=== PATIENT | female | born 1960 | race Caucasian/White ===

== ENCOUNTER → 2017-01-30 | Outpatient (CLI) | payer BC | LOC: LAB 08:10 | DX: E03.9 Hypothyroidism, unspecified (principal); Z13.1 Encounter for screening for diabetes mellitus; Z13.6 Encounter for screening for cardiovascular disorders ==

== ENCOUNTER → 2017-02-05 | Outpatient (CLI) | payer BC | LOC: RAD 15:44 | DX: R19.02 Left upper quadrant abdominal swelling, mass and lump (principal); K43.9 Ventral hernia without obstruction or gangrene ==

== ENCOUNTER → 2017-02-12 | Outpatient (CLI) | payer BC | LOC: RAD 09:56 | DX: R19.02 Left upper quadrant abdominal swelling, mass and lump (principal); K44.9 Diaphragmatic hernia without obstruction or gangrene | CPT/HCPCS: Q9967 ==

== ENCOUNTER → 2018-06-10 | Outpatient (CLI) | payer BC | LOC: MAMMO 15:55 | DX: Z12.31 Encounter for screening mammogram for malignant neoplasm of breast (principal) ==

== ENCOUNTER → 2019-07-14 | Outpatient (CLI) | payer BC | LOC: LAB 08:58 | DX: E03.9 Hypothyroidism, unspecified (principal) ==

== ENCOUNTER → 2020-07-27 | Outpatient (CLI) | payer BC | LOC: MAMMO 15:52 | DX: Z12.31 Encounter for screening mammogram for malignant neoplasm of breast (principal) ==

== ENCOUNTER → 2020-09-17 | Outpatient (CLI) | payer BC | LOC: RAD 16:56 | DX: R20.2 Paresthesia of skin (principal); R20.0 Anesthesia of skin ==

== ENCOUNTER → 2020-09-26 | Outpatient (CLI) | payer BC ==
[2020-09-26 07:50] LABS: ALBUMIN 4.4 g/dL (3.5-5.0); POTASSIUM 4.4 mmol/L (3.5-5.1)
[2020-09-26 07:51] LABS: CALCIUM 9.5 mg/dL (8.3-10.5)
[2020-09-26 07:53] LABS: TOTAL PROTEIN 7.2 g/dL (6.4-8.3)
[2020-09-26 07:54] LABS: TOTAL BILIRUBIN 0.4 mg/dL (0.2-1.2)
== END ==
LOC: LAB 07:11
PROVIDERS: Family Medicine
DX: Z13.1 Encounter for screening for diabetes mellitus (principal); Z13.220 Encounter for screening for lipoid disorders; E03.9 Hypothyroidism, unspecified

== ENCOUNTER → 2021-06-30 | Outpatient (CLI) | payer BC | LOC: LAB 15:19 | DX: N39.0 Urinary tract infection, site not specified (principal) ==

== ENCOUNTER → 2021-11-23 | Outpatient (CLI) | payer BC ==
[2021-11-23 08:01] LABS: ALBUMIN 4.4 g/dL (3.4-4.8); POTASSIUM 4.4 mmol/L (3.5-5.1)
[2021-11-23 08:03] LABS: CALCIUM 9.6 mg/dL (8.3-10.5)
[2021-11-23 08:04] LABS: TOTAL PROTEIN 7.3 g/dL (6.2-8.1)
[2021-11-23 08:06] LABS: TOTAL BILIRUBIN 0.4 mg/dL (0.2-1.2)
== END ==
LOC: LAB 07:36
PROVIDERS: Family Medicine
DX: E78.2 Mixed hyperlipidemia (principal)

== ENCOUNTER → 2022-09-14 | Outpatient (CLI) | payer BC ==
[2022-09-14 16:06] LABS: POTASSIUM 3.7 mmol/L (3.5-5.1)
[2022-09-14 16:07] LABS: CALCIUM 9.7 mg/dL (8.3-10.5)
== END ==
LOC: LAB 15:39
PROVIDERS: Family Medicine
DX: E03.9 Hypothyroidism, unspecified (principal)

== ENCOUNTER → 2022-09-17 | Outpatient (CLI) | payer BC | LOC: RAD 15:30 | DX: R91.1 Solitary pulmonary nodule (principal) | CPT/HCPCS: Q9967 ==